=== PATIENT | female | born 1940 | race Caucasian/White ===

== ENCOUNTER 2019-10-17 14:24 | Outpatient (CLI) | payer MEDICARE, OTHER, SELFPAY ==
--- NOTE | 2019-10-17 14:47 | XR_ITS ---
WS: [id number] SCREENING DEXA SCAN [employer] CLINICAL INFORMATION: POSTMENOPAUSAL COMPARISON: None. FINDINGS: The L1-L4 bone mineral density measures 0.807 g/cm2. This corresponds to a T score score of -3.1 and Z score of -0.6. Left femoral neck bone mineral density measures 0.530 g/cm2. This corresponds to a T score of -3.8 an d Z score of -1.3. Right femoral neck bone mineral density measures 0.528 g/cm2. This corresponds to a T score -3.8of an d Z score of -1.4. Mean femoral neck bone mineral density measures 0.529 g/cm2. This corresponds to a T score of -3.8 an d Z score of -1.3. XR/XR DEXA axial skeleton* [id number] IMPRESSION: Osteoporosis Patient's FRAX calculated 10 year probability for major osteoporotic fracture i s 25.1 % and osteoporotic hip fracture is 12.7%.
== END 2019-10-17 14:25 | disposition home or self-care (01) ==
LOC: RADWPI 14:34
PROVIDERS: PCP Nurse Practitioner Family; Visit Provider Nurse Practitioner Family
DX: M81.0 Age-related osteoporosis without current pathological fracture (principal)
CPT/HCPCS: 77080

== ENCOUNTER 2020-06-22 10:35 | Outpatient (CLI) | payer MEDICARE, OTHER, SELFPAY ==
--- NOTE | 2020-06-22 10:54 | XRR_ITS ---
PROCEDURE INFORMATION: Exam: XR Cervical Spine, 2 or 3 Views Exam date and time: 06/22/2020 11:15 AM Age: 79 years old Clinical indication: Neck pain; Additional info: Neck pain/hypertension TECHNIQUE: Imaging protocol: XR of the cervical spine, 2 or 3 views. COMPARISON: No relevant prior studies available. FINDINGS: Bones/joints: No fracture, dislocation or other acute bone joint abnormalities are seen. Degenerative changes are present with disc space narrowing and osteophyte formation. There is sclerosis and hypertrophy of the lower cervical facet joints. There is no malalignment. Soft tissues: Unremarkable. XR/XR cervical spine 3V* [id number] IMPRESSION: Chronic degenerative changes. No acute abnormality.
== END 2020-06-22 10:36 | disposition home or self-care (01) ==
PROVIDERS: PCP Nurse Practitioner Family; Visit Provider Nurse Practitioner Family
DX: M54.2 Cervicalgia (principal); I10 Essential (primary) hypertension
CPT/HCPCS: 72040

== ENCOUNTER 2020-10-07 09:43 | Outpatient (CLI) | payer MEDICARE, OTHER, SELFPAY ==
--- NOTE | 2020-10-07 09:50 | XR_ITS ---
WS: [id number] CHEST 2 VIEWS HISTORY: DYSPNEA COMPARISON: None available. Lungs: Hyperinflated lungs. No pneumonia. Normal vasculature. Cardiac size: Normal. Mediastinum/Aorta: Mild atherosclerosis aorta. Bones: Osteopenia. Prior RIGHT amanda dissection. XR/XR chest 2V* [id number] IMPRESSION: 1. Chronic emphysema. No pneumonia. 2. Mild atherosclerosis aorta.
== END 2020-10-07 09:44 | disposition home or self-care (01) ==
LOC: RAD 09:46
PROVIDERS: PCP Nurse Practitioner Family; Visit Provider Family Medicine
DX: R06.00 Dyspnea, unspecified (principal); J43.9 Emphysema, unspecified; I70.0 Atherosclerosis of aorta
CPT/HCPCS: 71046

== ENCOUNTER 2020-11-24 10:00 | Outpatient (CLI) | payer MEDICARE, OTHER, SELFPAY ==
--- NOTE | 2020-11-24 10:07 | MM_ITS ---
WS: [id number] DIAGNOSTIC LEFT DIGITAL MAMMOGRAM WITH CAD HISTORY: HX OF RT BREAST CA COMPARISON: 08/07/2019 and 08/12/2015 Technique: CC, MLO and ML views. Breast composition: The breasts are heterogeneously dense, which may obscure small masses. Benign ca lcification posterior to the nipple. No suspicious masses or interval change. Asymmetry posterior to the nipple is stable. No nipple retraction. MM/[place] [id number] IMPRESSION: BI-RADS: 2-Benign FOLLOW UP: 1 Year Follow-up
== END 2020-11-24 10:01 | disposition home or self-care (01) ==
PROVIDERS: PCP Nurse Practitioner Family; Visit Provider Family Medicine
DX: Z85.3 Personal history of malignant neoplasm of breast (principal)
CPT/HCPCS: 77065

== ENCOUNTER → 2022-01-03 12:26 | Outpatient (BNVA) | payer MEDICARE, OTHER, SELFPAY | PROVIDERS: PCP Nurse Practitioner Family; Visit Provider Clinical Nurse Specialist Adult Health | DX: N39.0 Urinary tract infection, site not specified (principal) | CPT/HCPCS: 81000; 87077; 87086; 87184 ==

== ENCOUNTER 2022-01-12 08:54 | Outpatient (CLI) | payer MEDICARE, OTHER, SELFPAY ==
--- NOTE | 2022-01-12 09:10 | MM_ITS ---
WS: [id number] VIEWS: MLO, CC, and ML views left breast only. 3D digital tomosynthesis is also included in this exa m. Comparison made with prior exam of 08/12/2015, 08/07/2019 and 11/24/2020. Findings: There was no sign of mass, architectural distortion or suspicious calcification in either breast. He terogeneously dense MM/[place] [id number] Impression: BI-RADS: 2-Benign FOLLOW-UP: 1 Year Follow-up This mammogram was also analyzed by the Computer Aided Detection System R2 Imag e Photographic Press Screwmaker.
== END 2022-01-12 08:55 | disposition home or self-care (01) ==
LOC: RAD 08:58
PROVIDERS: PCP Nurse Practitioner Family; Visit Provider Clinical Nurse Specialist Adult Health
DX: N63.0 Unspecified lump in unspecified breast (principal); Z85.3 Personal history of malignant neoplasm of breast
CPT/HCPCS: 77061

== ENCOUNTER → 2022-02-01 15:28 | Outpatient (BNVA) | payer MEDICARE, OTHER, SELFPAY | PROVIDERS: PCP Nurse Practitioner Family; Visit Provider Clinical Nurse Specialist Adult Health | DX: N39.0 Urinary tract infection, site not specified (principal) | CPT/HCPCS: 81000; 87086; 87184 ==

== ENCOUNTER → 2022-03-08 14:07 | Outpatient (BNVA) | payer MEDICARE, OTHER, SELFPAY | PROVIDERS: PCP Nurse Practitioner Family; Visit Provider Nurse Practitioner Family | DX: N39.0 Urinary tract infection, site not specified (principal) | CPT/HCPCS: 51798; 81003; 87086; 99203 ==

== ENCOUNTER → 2022-04-05 08:08 | Outpatient (BNVA) | payer MEDICARE, OTHER, SELFPAY | PROVIDERS: PCP Nurse Practitioner Family; Visit Provider Nurse Practitioner Family | DX: R33.9 Retention of urine, unspecified (principal); N39.0 Urinary tract infection, site not specified | CPT/HCPCS: 81003; 99213 ==

== ENCOUNTER → 2022-05-26 10:21 | Outpatient (BNVA) | payer MEDICARE, OTHER, SELFPAY | PROVIDERS: PCP Clinical Nurse Specialist Adult Health; Visit Provider Urology | DX: N39.0 Urinary tract infection, site not specified (principal) | CPT/HCPCS: 81003; 99213 ==

== ENCOUNTER → 2022-06-23 08:51 | Outpatient (BNVA) | payer MEDICARE, OTHER, SELFPAY | PROVIDERS: PCP Clinical Nurse Specialist Adult Health; Visit Provider Clinical Nurse Specialist Adult Health | DX: R35.0 Frequency of micturition (principal); N39.0 Urinary tract infection, site not specified; R05.1 Acute cough | CPT/HCPCS: 81000; 87086 ==

== ENCOUNTER → 2022-11-28 10:44 | Outpatient (BNVA) | payer MEDICARE, OTHER, SELFPAY | PROVIDERS: PCP Clinical Nurse Specialist Adult Health; Visit Provider Urology | DX: N39.0 Urinary tract infection, site not specified (principal) | CPT/HCPCS: 81003; 99213 ==

== ENCOUNTER → 2022-12-12 08:21 | Outpatient (BNVA) | payer MEDICARE, OTHER, SELFPAY | PROVIDERS: PCP Clinical Nurse Specialist Adult Health; Visit Provider Clinical Nurse Specialist Adult Health | DX: I10 Essential (primary) hypertension (principal); N39.0 Urinary tract infection, site not specified | CPT/HCPCS: 80053; 80061; 85025 ==

== ENCOUNTER 2023-01-18 09:21 | Outpatient (CLI) | payer MEDICARE, OTHER, SELFPAY ==
--- NOTE | 2023-01-18 09:29 | MM_ITS ---
WS: [id number] LEFT 3D TOMOSYNTHESIS DIGITAL MAMMOGRAPHY WITH CAD CLINICAL INFORMATION: ANNUAL - HX BR CA;RT MST HISTORY: Prior RIGHT mastectomy COMPARISON: January 12, 2022 TECHNIQUE: 3 views of the left breast were obtained. FINDINGS: Scattered fibroglandular densities of the left breast. No suspicious focal mass, asymmetry, calcifications, or architectural distortion. No evidence of alban gnancy. Vascular calcification. MM/[place] [id number] IMPRESSION: BI-RADS: 2-Benign FOLLOW UP: 1 Year Follow-up Recommend return to annual screening mammography.
== END 2023-01-18 09:22 | disposition home or self-care (01) ==
PROVIDERS: PCP Clinical Nurse Specialist Adult Health; Visit Provider Clinical Nurse Specialist Adult Health
DX: Z85.3 Personal history of malignant neoplasm of breast (principal)
CPT/HCPCS: 77061; G0279

== ENCOUNTER 2023-01-30 05:28 | Emergency (ER) | payer MEDICARE, OTHER, SELFPAY ==
[2023-01-30] VITALS (7 sets, daily range): BP systolic 128–146; BP diastolic 70–80; PULSE 54–66; RESP 16–30; TEMP 36.4; O2SAT 92–96; BMI 16.9
--- NOTE | 2023-01-30 05:39 | XRR_ITS ---
PROCEDURE INFORMATION: Exam: XR Chest Exam date and time: 01/30/2023 5:45 AM Age: 82 years old Clinical indication: Cough and dyspnea; Prior surgery; Surgery date: 6+ months; Surgery type: Right mastectomy 1994; Additional info: Dyspnea/cough TECHNIQUE: Imaging protocol: Radiologic exam of the chest. Views: 1 view. COMPARISON: CR XR chest 2V* [id number] 10/07/2020 9:54 AM FINDINGS: Lungs: Lungs are clear. Pleural spaces: There is no pleural effusion or pneumothorax. Heart/Mediastinum: There is mild enlargement of the cardiac silhouette. Bones/joints: Bones are unremarkable. XR/XR chest 1V portable [id number] IMPRESSION: No acute findings.
--- NOTE | 2023-01-30 05:39 | ECG_ITS ---
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 Measurements Intervals [place] Rate: 52 P: 60 WA: 174 QRS: 54 QRSD: 83 T: 63 QT: 426 QTc: 399 Interpretive Statements SINUS BRADYCARDIA POSSIBLE LEFT ATRIAL ENLARGEMENT [-0.1mV P-WAVE IN V1/V2] INTERPRETATION BASED ON A DEFAULT AGE OF 40 YEARS No previous ECG available for comparison Electronically Signed On 02-01-2023 9:54:16 CDT by Aldo Virgen M.D. [id number] f
[2023-01-30 05:50] LABS: Basophils # 0.1 10^3/uL (0.0-0.1); Basophils % 0.5 %; Eosinophils # 0.2 10^3/uL (0.0-0.8); Eosinophils % 2.6 %; Hematocrit 45.7 % (37.0-47.0); Hemoglobin 14.6 g/dL (11.5-15.3); Lymphocytes # 1.7 10^3/uL (0.8-4.8); Lymphocytes % 17.6 %; Mean Corpuscular HGB Conc 31.9 g/dL (30.0-36.0); Mean Corpuscular Hemoglobin 30.6 pg (28.0-34.0); Mean Corpuscular Volume 95.8 fl (81-99); Mean Platelet Volume 10.2 fL (7.4-10.4); Monocytes # 0.6 10^3/uL (0.2-0.9); Monocytes % 6.7 %; Neutrophils # 6.76 10^3/uL (1.8-7.7); Neutrophils % 72.4 %; Nucleated Red Blood Cells % 0 %; Platelet Count 238 10^3/cmm (130-400); Red Blood Count 4.77 10^6/uL (4.1-5.3); Red Cell Distribution Width 13.6 % (12.1-15.1); White Blood Count 9.4 10^3/uL (4.0-10.0)
--- NOTE | 2023-01-30 06:05 | ED_ITS ---
HPI - SOB/Dyspnea General: Chief Complaint: Shortness of Breath/Dyspnea Stated Complaint: sob Source: patient Mode of arrival: ambulatory History of Present Illness: HPI Narrative: 82-year-old female presents emergency room complaining of shortness of breath. She got out of bed this morning around 04 10 and could not catch her breath she also started having some right upper quadrant abdominal pain. She is very nauseous but did not throw up she denies chest pain. No fever sweats chills denies dysuria urgency or frequency. She has not had any orthopnea. She does have a history of breast cancer and a second primary cancer lung cancer. MD elicited complaint: shortness of breath and cough Pertinent past history: COPD Onset (ago): minute(s) Timing: constant Severity: moderate Exacerbating factors: nothing Relieving factors: nothing Known history of: COPD Associated symptoms: Reports abdominal pain; Deny chest congestion, chest pain, cough, diaphoresis, dizziness, extremity pain, fever(s), hemoptysis, lightheadedness, myalgias, nausea, orthopnea, palpitations, paresthesias, polydipsia, polyuria, rash, sense of impending doom, syncope or vomiting Treatment prior to arrival: none Review of Systems Const: Denies: fever(s) or diaphoresis ENMT: Denies: throat pain, ear or mastoid pain, nasal discharge or nasal congestion Card: Denies: chest pain, palpitations, lightheadedness, syncope or orthopnea Resp: Reports: dyspnea and non-productive cough; Denies: hemoptysis or chest congestion GI: Reports: abdominal pain; Denies: nausea, vomiting or hematemesis : Denies: flank pain, difficulty voiding, dysuria, urinary frequency or urinary urgency Musc: Denies: neck pain, back pain or extremity pain Skin/Breast: Denies: rash or pruritus Neuro: Denies: dizziness Endo: Denies: polyuria or polydipsia PFSH ED PFSH: Medical History History of breast cancer 1994 HTN (hypertension) Hx of cancer of lung 2014 Macular degeneration 2018 Meige syndrome (blepharospasm with oromandibular dystonia) 2000 Recurrent UTI Surgical History History of hysterectomy 1994 History of mastectomy Right (1994) Family History Mother , at age 91 Healthy adult Gallbladder attack Father , at age 85 Alzheimer disease Sister Cancer Breast Social History Smoking and tobacco status: never smoked Alcohol intake: never Lives independently: Yes Household members: spouse Marital status: Current occupational status: retired Pets and animals: Yes Physical Exam Const: COMMON NORMALS: no acute distress GENERAL APPEARANCE: cooperative and comfortable ORIENTATION/CONSCIOUSNESS: Yes awake, Yes oriented to person, Yes oriented to place and Yes oriented to time HENMT: COMMON NORMALS: normocephalic, atraumatic and hearing grossly normal bilaterally HEAD & SCALP: normocephalic and atraumatic Resp: COMMON NORMALS: normal respiratory effort, No retractions, No use of accessory muscles and clear to auscultation bilaterally AUSCULTATION: clear to auscultation bilaterally Cardio: COMMON NORMALS: regular rate, regular rhythm and No murmurs present (Cardio) RATE: regular rate RHYTHM: regular rhythm GI: COMMON NORMALS: No hepatosplenomegaly present AUSCULTATION: Yes normoa ctive bowel sounds PALPATION: Yes Tenderness to palpation present (GI) De tails: RUQ, No Guarding due to palpation present (GI) and Yes No hepatosplenomegaly present : COMMON NORMALS: Yes no CVA tenderness BLADDER/KIDNEY EXAM: Yes no CVA tenderness Back/Pelvis: COMMON NORMALS: no CVA tenderness Extremity: COMMON NORMALS: normal to inspection, capillary refill normal, no clubbing, cyanosis or edema, no calf tenderness and no pedal edema Neuro: SENSORIUM/ORIENTATION: Yes oriented to person, Yes oriented to place and Yes oriented to time Skin: COMMON NORMALS: no rashes or lesions noted GENERAL SKIN EXAM: no rashes or lesions noted Course Vital Signs: Vital signs: Vital Signs Temperature 97.6 F 01/30/23 05:31 Pulse Rate 66 01/30/23 09:14 Respiratory Rate 16 01/30/23 09:14 Blood Pressure 128/78 01/30/23 09:14 Pulse Oximetry 95 01/30/23 09:14 Oxygen Delivery Me thod Room Air 01/30/23 06:27 MDM - SOB/Dyspnea Medical Decision Making Labs imaging and EKG reviewed EKG does not show any acute ST changes. Troponins unremarkable. Patient's symptoms have resolved she is resting comfortably she can reproduce some slightly with deep inspiration. CT is unremarkable otherwise labs do not show any significant pathology. We will discharge patient home anti-inflammatories as needed and follow-up as an recurrence of symptoms. Medical Records I reviewed the patient's medical records. Lab Data I reviewed the patient's lab results. 01/30/23 05:44 01/30/23 06:19 Labs/Radiology: Radiology Impressions Chest X-Ray 01/30/23 05:39 IMPRESSION: No acute findings. Abdomen/Pelvis CT 01/30/23 06:29 IMPRESSION: 1. No acute abdominal or pelvic abnormalities are identified. 2. No ascites, free air or adenopathy. 3. Marked pectus excavatum deformity. 4. Sigmoid diverticulosis without acute diverticulitis. 5. Prior hysterectomy. Laboratory Results WBC 9.4 10^3/uL (4.0-10.0) 01/30/23 05:44 RBC 4.77 10^6/uL (4.1-5.3) 01/30/23 05:44 Hgb 14.6 g/dL (11.5-15.3) 01/30/23 05:44 Hct 45.7 % (37.0-47.0) 01/30/23 05:44 MCV 95.8 fl (81-99) 01/30/23 05:44 MCH 30.6 pg (28.0-34.0) 01/30/23 05:44 MCHC 31.9 g/dL (30.0-36.0) 01/30/23 05:44 RDW 13.6 % (12.1-15.1) 01/30/23 05:44 Plt Count 238 10^3/cmm (130-400) 01/30/23 05:44 MPV 10.2 fL (7.4-10.4) 01/30/23 05:44 Neut % (Auto) 72.4 % 01/30/23 05:44 Lymph % (Auto) 17.6 % 01/30/23 05:44 [place] % (Auto) 6.7 % 01/30/23 05:44 Eos % (Auto) 2.6 % 01/30/23 05:44 Baso % (Auto) 0.5 % 01/30/23 05:44 Neut # (Auto) 6.76 10^3/uL (1.8-7.7) 01/30/23 05:44 Lymph # (Auto) 1.7 10^3/uL (0.8-4.8) 01/30/23 05:44 [place] # (Auto) 0.6 10^3/uL (0.2-0.9) 01/30/23 05:44 Eos # (Auto) 0.2 10^3/uL (0.0-0.8) 01/30/23 05:44 Baso # (Auto) 0.1 10^3/uL (0.0-0.1) 01/30/23 05:44 Nucleated RBC % (auto) 0 % 01/30/23 05:44 Nucleated RBCs # 0.0 /100WBC 01/30/23 05:44 Sodium 136 mmol/L (136-145) 01/30/23 06:19 Potassium 4.3 mmol/L (3.5-5.1) 01/30/23 06:19 Chloride 99 mmol/L (98-107) 01/30/23 06:19 Carbon Dioxide 23 mmol/L (22-29) 01/30/23 06:19 Anion Gap 18.3 (5-19) 01/30/23 06:19 BUN 22 mg/dL (8-23) 01/30/23 06:19 Creatinine 0.7 mg/dL (0.5-0.9) 01/30/23 06:19 GFR Calculation Not Reportable 01/30/23 06:19 Glucose 136 mg/dL (65-115) H 01/30/23 06:19 Calculated Osmolality 287 mOsm/kg (285-295) 01/30/23 06:19 Calcium 9.0 mg/dL (8.5-10.5) 01/30/23 06:19 Total Bilirubin 0.8 mg/dL (0.15-1.2) 01/30/23 06:19 AST 20 U/L (0-32) 01/30/23 06:19 ALT 12 U/L (0-33) 01/30/23 06:19 Alkaline Phosphatase 60 U/L (35-105) 01/30/23 06:19 Troponin T Baseline 6 ng/L (0-10) 01/30/23 06:19 Troponin T 120 Minute 7.78 ng/L (0-10) 01/30/23 08:27 Delta Troponin T 1.78 ABS# (0-10) 01/30/23 08:27 NT-Pro-B Natriuret Pep 339 pg/mL (0-450) 01/30/23 06:19 Total Protein 6.9 g/dL (6.6-8.7) 01/30/23 06:19 Albumin 4.0 g/dL (3.5-5.2) 01/30/23 06:19 Globulin 2.9 g/dL (1.3-4.6) 01/30/23 06:19 Lipase 25 U/L (13-60) 01/30/23 06:19 Discharge Plan Discharge Patient Disposition: Home Clinical Impression: Dyspnea, Chest pain, pleuritic Condition: Stable Prescriptions: New diclofenac sodium 75 mg tablet,delayed release (DR/EC) 75 mg PO Q12H PRN (Reason: pain) Qty: 20 0RF No Action alendronate 70 mg tablet PO .weekly calcium carbonate [Calcium 600] 600 mg calcium (1,500 mg) tablet 600 mg PO BID cholecalciferol (vitamin D3) 25 mcg (1,000 unit) capsule 25 mcg PO DAILY PreserVision AREDS [id number] kinw-hf-yewl capsule 1 cap PO BID fexofenadine [Divina Allergy] 180 mg tablet 180 mg PO DAILY fnqgxztklytd-Mq-yxky-minerals 18-0.4 mg tablet PO cranberry 400 mg capsule 400 mg PO BID Qty: 60 0RF Rx Instructions: administer with meals lisinopril 10 mg tablet 10 mg PO DAILY Qty: 90 3RF ciprofloxacin HCl [Cipro] 500 mg tablet 500 mg PO BID Qty: 40 0RF Rx Instructions: for chronic cystitis clonazepam 0.5 mg tablet 0.5 mg PO BID Qty: 60 3RF metoprolol tartrate 25 mg tablet See Rx Instructions .ROUTE .COMPLEX Qty: 60 11RF Dose Instruction: Take 1 tablet by mouth twice daily Rx Instructions: Take 1 tablet by mouth twice daily Discharge Orders: Discharge ED (Routine); Ordered 01/30/23 Ordered By: Dougie Best Referrals: Carlos Rg, SUPERVISORY CIVIL ENGINEER [Primary Care Provider] - Discharge Diet: Usual diet Discharge Activity: Resume usual activity Patient Instructions: Opioid Safety, Pain Management Coding Level of Care Code ED Outpatient Interviewing Clerk for Iva Alvarado
[2023-01-30] MEDS: ondansetron 2 mg/ML SDV 2 mL 4 MG IVP (06:23)
[2023-01-30] MEDS: morphine 4 mg/mL SDV 1 mL 2 MG IVP (06:24)
[2023-01-30] MEDS: sodium chloride 0.9% 500 ML 999 ML IV (06:25)
--- NOTE | 2023-01-30 06:29 | CT_ITS ---
WS: [id number] CT ABDOMEN AND PELVIS WITH CONTRAST HISTORY: abd pain, history of breast and lung cancer. TECHNIQUE: Imaging performed of the abdomen and pelvis with IV contrast. Single phase imaging of the abdomen. Coronal and sagittal reformats are submitted. All CT scans at [facility] use at [facility] one of these dose optimization techniques: automated exposure control; mA and/or kV adjustment per patient size (includes targeted exams where dose is matched to clinical indication); or iterative re construction. IV CONTRAST: Omnipaque 350; 75 mL IV. Oral contrast: No DLP: 332.50 mGy.cm COMPARISON: None available. Lower thorax: Mild dependent changes at the lung bases. Marked pectus excavatum causing significant n arrowing of the lower thorax. Heart is enlarged due to the pectus excavatum. No hiatal hernia. Liver/biliary system: Normal size with no intrahepatic dilatation. Gallbladder: Normal. No gallstones or wall thickening. No pericholecystic fluid. Pancreas: Normal size pancreas and pancreatic duct. No adjacent inflammation. Spleen: Normal size spleen. No mass or infarct. Adrenal glands: Normal. Right kidney: Normal. Left kidney: Normal. Aorta: Normal. Lymphadenopathy: None. Free fluid: None. GI tract: Normal stomach and small bowel. No dilatation or ischemic change. Numerous diverticula in t he distal colon. No evidence for acute diverticulitis. The appendix is visualized and is normal. No o bstruction. Abdominal wall: Unremarkable abdominal wall. No hernia. Pelvis: Prior hysterectomy. No free fluid or adenopathy. Bones: Unremarkable. CT/CT abdomen pelvis w con* [id number] IMPRESSION: 1. No acute abdominal or pelvic abnormalities are identified. 2. No ascites, free air or adenopathy. 3. Marked pectus excavatum deformity. 4. Sigmoid diverticulosis without acute diverticulitis. 5. Prior hysterectomy.
[2023-01-30 06:48] LABS: Troponin(5th) Baseline 6 ng/L (0-10)
[2023-01-30 06:54] LABS: Alanine Aminotransferase 12 U/L (0-33); Alkaline Phosphatase 60 U/L (35-105); Anion Gap 18.3 (5-19); Aspartate Amino Transferase 20 U/L (0-32); Blood Urea Nitrogen 22 mg/dL (8-23); Carbon Dioxide 23 mmol/L (22-29); Chloride 99 mmol/L (98-107); Globulin 2.9 g/dL (1.3-4.6); Glucose 136 mg/dL (65-115); Lipase 25 U/L (13-60); NT Pro B Type Natriuretic Pept 339 pg/mL (0-450); Osmolality Calculated 287 mOsm/kg (285-295); Potassium 4.3 mmol/L (3.5-5.1); Sodium 136 mmol/L (136-145); Total Bilirubin 0.8 mg/dL (0.15-1.2); Total Protein 6.9 g/dL (6.6-8.7)
[2023-01-30] MEDS: iohexol 350 mg/mL 500 mL Btl (per mL) IV (07:11)
--- NOTE | 2023-01-30 08:06 | ECG_ITS ---
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 Measurements Intervals [place] Rate: 66 P: 70 IA: 162 QRS: 68 QRSD: 90 T: 68 QT: 410 QTc: 431 Interpretive Statements SINUS RHYTHM POSSIBLE LEFT ATRIAL ENLARGEMENT [-0.1mV P-WAVE IN V1/V2] Compared to ECG 01/30/2023 05:35:48 Sinus bradycardia no longer present Electronically Signed On 02-01-2023 12:24:45 CDT by Aldo Virgen M.D. [email or web address]
[2023-01-30 08:55] LABS: Troponin 5 2HR 7.78 ng/L (0-10)
[2023-01-30 09:37] LABS: Troponin 5 2HR Delta 1.78 ABS# (0-10)
== END 2023-01-30 09:20 | disposition home or self-care (01) ==
PROVIDERS: Emergency Provider Family Medicine; PCP Clinical Nurse Specialist Adult Health
DX: R06.00 Dyspnea, unspecified (principal); R09.1 Pleurisy; I10 Essential (primary) hypertension; Z85.3 Personal history of malignant neoplasm of breast; Z85.118 Personal history of other malignant neoplasm of bronchus and lung; H35.30 Unspecified macular degeneration
CPT/HCPCS: 36415; 71045; 74177; 80053; 83690; 83880; 84484; 85025; 93005; 96374; 96375; 99285; J2270; J2405; J7040; Q9967

== ENCOUNTER → 2023-05-23 10:53 | Outpatient (BNVA) | payer MEDICARE, OTHER, SELFPAY | PROVIDERS: PCP Clinical Nurse Specialist Adult Health; Visit Provider Clinical Nurse Specialist Adult Health | DX: N39.0 Urinary tract infection, site not specified (principal); G24.4 Idiopathic orofacial dystonia | CPT/HCPCS: 81000; 87086; 87184 ==

== ENCOUNTER → 2023-06-12 08:56 | Outpatient (BNVA) | payer MEDICARE, OTHER, SELFPAY | PROVIDERS: PCP Clinical Nurse Specialist Adult Health; Visit Provider Clinical Nurse Specialist Adult Health | DX: Z23 Encounter for immunization (principal); N39.0 Urinary tract infection, site not specified | CPT/HCPCS: 81000; 87086 ==

== ENCOUNTER → 2023-11-20 10:33 | Outpatient (BNVA) | payer MEDICARE, SELFPAY | PROVIDERS: PCP Clinical Nurse Specialist Adult Health; Visit Provider Clinical Nurse Specialist Adult Health | DX: I10 Essential (primary) hypertension (principal); M81.0 Age-related osteoporosis without current pathological fracture | CPT/HCPCS: 80053; 82306; 85025; 86140 ==

== ENCOUNTER → 2024-02-13 13:30 | Outpatient (CLI) | payer MEDICARE, SELFPAY ==
--- NOTE | 2024-02-13 14:00 | XR_ITS ---
WS: [id number] SCREENING DEXA SCAN [employer] 3D CLINICAL INFORMATION: osteoporosis COMPARISON: 2019 FINDINGS: The L1-L4 bone mineral density measures 0.899 g/cm2. This corresponds to a T score score of -2.3 and Z score of 0.2. Left femoral neck bone mineral density measures 0.550 g/cm2. This corresponds to a T score of -3.6 an d Z score of -1.0. Right femoral neck bone mineral density measures 0.543 g/cm2. This corresponds to a T score -3.7of an d Z score of -1.0. Mean femoral neck bone mineral density measures 0.547 g/cm2. This corresponds to a T score of -3.7 an d Z score of -1.0. XR/XR DEXA axial skeleton* [id number] IMPRESSION: Osteopenia lumbar spine. Osteoporosis femoral necks. Patient's FRAX calculated 10 year probability for major osteoporotic fracture i s 21.4% and osteoporotic hip fracture is 9.9%. Bone mineral density lumbar spine increased 11.4% Bone mineral density femoral necks increased 3.4%
--- NOTE | 2024-02-13 14:30 | MM_ITS ---
WS: [id number] Left breast diagnostic 3D tomosynthesis digital mammogram, 02/13/2024 Clinical Data: History of breast cancer Comparison: 01/18/2023, 01/12/2022, 11/24/2020, 08/07/2019, 08/12/2015. Findings: The left breast shows heterogeneous density. There are mole markers on the breast. No spiculated mass es nor clustered calcifications are seen. There are no secondary signs of carcinoma. MM/[place] [id number] Impression: 1. Negative left breast mammogram unchanged. 2. Recommend yearly left breast mammogram BIRADS: 1-Negative FOLLOW UP: 1 Year Follow-up The CAD aircraft delivery checker was used.
== END | disposition home or self-care (01) ==
PROVIDERS: PCP Clinical Nurse Specialist Adult Health; Visit Provider Clinical Nurse Specialist Adult Health
DX: Z85.3 Personal history of malignant neoplasm of breast (principal); R92.332 Mammographic heterogeneous density, left breast; M81.0 Age-related osteoporosis without current pathological fracture; M85.88 Other specified disorders of bone density and structure, other site
CPT/HCPCS: 77062; 77080; G0279

== ENCOUNTER 2024-04-02 09:48 | Outpatient (CLI) | payer MEDICARE, SELFPAY ==
--- NOTE | 2024-04-02 10:15 | US_ITS ---
WS: [id number] ULTRASOUND SOFT TISSUES LEFT posterior neck. HISTORY: enlarged lymph node, patient presents for biopsy of the palpable mass. COMPARISON: None available. TECHNIQUE: 2-D and color Doppler imaging is submitted. Ultrasound was first performed to evaluate the palpable mass along the posterior cervical chain. Cheryl ent indicates the exact location of the palpable area. Patient also indicates this mass has become sm aller. Ultrasound no abnormality is identified. No posterior cervical chain lymph nodes are identified. No biopsy will be performed today. US/US soft tissue head neck [id number] IMPRESSION: 1. No mass identified along the posterior RIGHT cervical chain for which biops y should be obtained. 2. If mass becomes larger in size or there is continued concern recommend foll ow-up neck CT with IV contrast to try to identify and characterize this mass fu rther. At this time there is no abnormality seen by ultrasound.
== END 2024-04-02 09:49 | disposition home or self-care (01) ==
LOC: RAD 09:50
PROVIDERS: PCP Clinical Nurse Specialist Adult Health; Visit Provider Clinical Nurse Specialist Adult Health
DX: R59.1 Generalized enlarged lymph nodes (principal)
CPT/HCPCS: 76536

== ENCOUNTER 2024-06-25 06:00 | Outpatient (CLI) | payer MEDICARE, SELFPAY ==
--- NOTE | 2024-07-18 13:00 | CTR_ITS ---
PROCEDURE INFORMATION: Exam: CT Neck With Contrast Exam date and time: 07/18/2024 1:52 PM Age: 83 years old Clinical indication: Enlarged lymph nodes; Prior surgery; Surgery date: 6+ months; Surgery type: Right mastectomy; Patient HX: RT posterior cervical lymph node. Soreness in RT side of chest x 2 months. Lump on RT side of neck bb placed; Additional info: Right posterior cervical lymph node, soft tissue with neck TECHNIQUE: Imaging protocol: Computed tomography of the neck with contrast. Radiation optimization: All CT scans at this facility use at least one of these dose optimization techniques: automated exposure control; mA and/or kV adjustment per patient size (includes targeted exams where dose is matched to clinical indication); or iterative reconstruction. Contrast material: OMNI 350; Contrast volume: 100 ml; Contrast route: INTRAVENOUS (IV); COMPARISON: US soft tissue head neck [id number] 04/02/2024 9:59 AM RADIATION DOSE METRICS: Total DLP (mGy-cm): 164.36 FINDINGS: Salivary glands: The parotid glands are normal. The submandibular glands are normal. Pharynx: The nasopharynx is unremarkable. There is no significant pharyngeal tonsillar enlargement. The oropharynx is unremarkable. There is no significant palatine tonsillar enlargement. The hypopharynx is unremarkable. There is no significant lingual tonsillar enlargement. Prevertebral and retropharyngeal spaces: There is no fluid or edema in the retropharyngeal space. Larynx: The larynx and epiglottis are normal. Thyroid: The thyroid gland is unremarkable. Trachea: The visible portion of the trachea is normal. Lungs: There is right apical subpleural scarring. There is a noncalcified pulmonary nodule in the right upper lobe visible on series 3, image 90 measuring 4 mm. Lymph nodes: There is no cervical or supraclavicular lymphadenopathy. Vasculature: The carotid and vertebral arteries and internal jugular veins are unremarkable as visualized. Bones/joints: Spinal alignment is normal. Vertebral body height is maintained. There is mild degenerative disc disease in the cervical spine. Moderate to severe multilevel cervical facet spondylosis with multilevel bilateral facet ankylosis. Facet degeneration is greatest on the right at C2-C3. Soft tissues: There is a radiodense skin marker overlying the lateral right upper neck. At the site of the marker there is asymmetric enlargement, marked spondylosis and partial ankylosis of the right C2-C3 articular facet. There is no visible mass or lymph node at the site of palpable abnormality.
== END 2024-06-25 06:01 | disposition home or self-care (01) ==
LOC: RAD 07-03 09:23
PROVIDERS: PCP Family Medicine; Visit Provider Family Medicine
DX: R59.1 Generalized enlarged lymph nodes (principal)
CPT/HCPCS: 80053; 85025; 86140

== ENCOUNTER 2024-07-18 12:36 | Outpatient (CLI) | payer MEDICARE, SELFPAY ==
--- NOTE | 2024-07-18 | CTR_ITS ---
NOTE: Report was unsigned for reason: Order was edited. Original Signature date and time was:07/21/24 @ 0725 PROCEDURE INFORMATION: Exam: CT Neck With Contrast Exam date and time: 07/18/2024 1:52 PM Age: 83 years old Clinical indication: Enlarged lymph nodes; Prior surgery; Surgery date: 6+ months; Surgery type: Right mastectomy; Patient HX: RT posterior cervical lymph node. Soreness in RT side of chest x 2 months. Lump on RT side of neck bb placed; Additional info: Right posterior cervical lymph node, soft tissue with neck TECHNIQUE: Imaging protocol: Computed tomography of the neck with contrast. Radiation optimization: All CT scans at this facility use at least one of these dose optimization techniques: automated exposure control; mA and/or kV adjustment per patient size (includes targeted exams where dose is matched to clinical indication); or iterative reconstruction. Contrast material: OMNI 350; Contrast volume: 100 ml; Contrast route: INTRAVENOUS (IV); COMPARISON: US soft tissue head neck [id number] 04/02/2024 9:59 AM RADIATION DOSE METRICS: Total DLP (mGy-cm): 164.36 FINDINGS: Salivary glands: The parotid glands are normal. The submandibular glands are normal. Pharynx: The nasopharynx is unremarkable. There is no significant pharyngeal tonsillar enlargement. The oropharynx is unremarkable. There is no significant palatine tonsillar enlargement. The hypopharynx is unremarkable. There is no significant lingual tonsillar enlargement. Prevertebral and retropharyngeal spaces: There is no fluid or edema in the retropharyngeal space. Larynx: The larynx and epiglottis are normal. Thyroid: The thyroid gland is unremarkable. Trachea: The visible portion of the trachea is normal. Lungs: There is right apical subpleural scarring. There is a noncalcified pulmonary nodule in the right upper lobe visible on series 3, image 90 measuring 4 mm. Lymph nodes: There is no cervical or supraclavicular lymphadenopathy. Vasculature: The carotid and vertebral arteries and internal jugular veins are unremarkable as visualized. Bones/joints: Spinal alignment is normal. Vertebral body height is maintained. There is mild degenerative disc disease in the cervical spine. Moderate to severe multilevel cervical facet spondylosis with multilevel bilateral facet ankylosis. Facet degeneration is greatest on the right at C2-C3. Soft tissues: There is a radiodense skin marker overlying the lateral right upper neck. At the site of the marker there is asymmetric enlargement, marked spondylosis and partial ankylosis of the right C2-C3 articular facet. There is no visible mass or lymph node at the site of palpable abnormality. Dictated By: Saad Watson MD Signed By: Signed Date/Time: DD/ 1352 MTDD
== END 2024-07-18 12:37 | disposition home or self-care (01) ==
PROVIDERS: PCP Family Medicine; Visit Provider Family Medicine
DX: R22.1 Localized swelling, mass and lump, neck (principal); M47.892 Other spondylosis, cervical region; M45.2 Ankylosing spondylitis of cervical region
CPT/HCPCS: 70491; 80053; 85025; 86140; Q9967

== ENCOUNTER → 2024-12-01 12:46 | Outpatient (BNVA) | payer MEDICARE, SELFPAY | PROVIDERS: PCP Family Medicine; Visit Provider Family Medicine | DX: I10 Essential (primary) hypertension (principal) | CPT/HCPCS: 80053; 84443; 85025 ==

== ENCOUNTER 2025-03-18 09:28 | Outpatient (CLI) | payer MEDICARE, SELFPAY ==
--- NOTE | 2025-03-18 10:00 | MM_ITS ---
WS: [id number] DIAGNOSTIC LEFT DIGITAL BREAST TOMOSYNTHESIS WITH CAD HISTORY: HX BREAST CANCER COMPARISON: 02/13/2024, 01/18/2023, 01/12/2022 Left craniocaudal, mediolateral oblique and medial lateral images are submitted with tomosynthesis and SM. Computer aided detection performed. Breast composition: There are scattered areas of fibroglandular density. Very difficult mammogram. Difficulty due to patient positioning and kyphotic appearance. On the visualized images no distortion or suspicious calcification. No architectural distortion. MM/MM diag tomosynthesis [id number] IMPRESSION: BI-RADS: 2 - Benign. FOLLOW UP: 1 Year Follow-up
== END 2025-03-18 09:29 | disposition home or self-care (01) ==
LOC: RAD 09:32
PROVIDERS: PCP Family Medicine; Visit Provider Family Medicine
DX: Z85.3 Personal history of malignant neoplasm of breast (principal); R92.323 Mammographic fibroglandular density, bilateral breasts
CPT/HCPCS: 77061; G0279

== ENCOUNTER → 2025-04-02 08:16 | Outpatient (BNVA) | payer MEDICARE, SELFPAY | PROVIDERS: PCP Family Medicine; Visit Provider Family Medicine | DX: N39.0 Urinary tract infection, site not specified (principal); I10 Essential (primary) hypertension; Z85.3 Personal history of malignant neoplasm of breast | CPT/HCPCS: 80053; 80061; 81000; 85025; 87077; 87086; 87184 ==

== ENCOUNTER 2025-06-05 08:09 | Outpatient (CLI) | payer MEDICARE, SELFPAY ==
--- NOTE | 2025-06-05 08:45 | MR_ITS ---
WS: [id number] MRI HEAD WITHOUT CONTRAST TECHNIQUE: Sagittal T1, T2 axial, T2 axial FLAIR, axial and coronal T1 images, axial susceptibility weighted imaging, axial diffusion weighted images, and coronal T2 images were obtained. CLINICAL INFORMATION: syncope/ fall COMPARISON: None. FINDINGS: No evidence of restricted diffusion to suggest acute ischemia. Ventricular system and basilar cisterns are patent. Moderate to advanced small vessel changes with moderate parenchymal volume loss. Normal posterior fossa. Normal vascular flow voids at the skull base. No extra-axial fluid collections. Par anasal sinuses and mastoid air cells are well aerated. Normal posterior nasopharynx. No hemosiderin on the susceptibly weighted images. Normal optic chiasm and pituitary infundibulum. Moderate symmetric atrophy temporal lobes and hippocampal formations. No other acute findings. MR/MR head wo con* [id number] IMPRESSION: 1. No evidence of restricted diffusion to suggest acute ischemia. 2. Moderate to advanced small vessel changes with moderate parenchymal volume loss. Small vessel changes in the julienne. 3. No hemosiderin on susceptibility-weighted images. 4. Moderate symmetric atrophy temporal lobes and hippocampal formations. 5. No other acute findings.
== END 2025-06-05 08:10 | disposition home or self-care (01) ==
LOC: RAD 08:11
PROVIDERS: PCP Family Medicine; Visit Provider Family Medicine
DX: G45.9 Transient cerebral ischemic attack, unspecified (principal); R93.7 Abnormal findings on diagnostic imaging of other parts of musculoskeletal system; G31.9 Degenerative disease of nervous system, unspecified
CPT/HCPCS: 70551